=== PATIENT | male | born 1945 | race Caucasian/White ===

== ENCOUNTER 2017-09-05 09:00 | Emergency (ER) | payer MEDICARE ==
[~2017-09-05] VITALS: Ht 177.8 cm; Wt 75.0 kg
[~2017-09-05 09:00] MED LIST: DICL75TA2 PO; GABA300C10 PO; METH750T87 PO; MODA200T27 PO; OXYC-302 PO; [UNRECOGNIZED DRUG - CODE] PO
[2017-09-05] MEDS ORDERED: SODIUM CHLORIDE FLUSH 10ML SYR IVF ONE (11:00)
[2017-09-05] MEDS ORDERED: SODIUM CHLORIDE 0.9% 1,000ML IV ONE (11:00)
[2017-09-05 11:08] LABS: HEMATOCRIT 44.4 % (39.2-51.8); HEMOGLOBIN 15.1 g/dL (13.7-18.0); WHITE BLOOD COUNT 15.6 x10^3/uL (3.4-10)
[2017-09-05 11:20] LABS: ASPARTATE AMINO TRANSFERASE 12 U/L (15-37); BLOOD UREA NITROGEN 19 mg/dL (7-18)
[2017-09-05 11:43] LABS: DIFF TOTAL CELLS COUNTED 100 CELL DIFF
[2017-09-05 11:55] LABS: VERIFY COUNTS? YES
[2017-09-05 13:56] VITALS: BP 136/78
[2017-09-05] MEDS ORDERED: GADOBUTROL 7.5 MMOL/7.5 ML PFS ONE (14:15)
== END 2017-09-05 13:59 | disposition home or self-care (01) ==
LOC: ED 10:26
DX: N34.1 Nonspecific urethritis (principal); D72.829 Elevated white blood cell count, unspecified; M25.559 Pain in unspecified hip; M54.9 Dorsalgia, unspecified; G89.29 Other chronic pain
CPT/HCPCS: 36415; 72158; 74176; 80053; 81003; 85025; 96360; 99285; A9585; J7030

== ENCOUNTER → 2020-01-21 | Outpatient (CLI) | payer MEDICARE ==
[~2020-01-21] MED LIST changes: -DICL75TA2 PO; +DICL75TA3 PO
== END | disposition home or self-care (01) ==
LOC: RAD 08:41
PROVIDERS: ATTEND Internal Medicine Hematology & Oncology
DX: C91.10 Chronic lymphocytic leukemia of B-cell type not having achieved remission (principal)
CPT/HCPCS: 36573; C1751

== ENCOUNTER 2020-02-02 07:44 | Emergency (ER) | payer MEDICARE ==
[~2020-02-02] VITALS: Ht 177.8 cm; Wt 79.8 kg
--- NOTE | 2020-02-02 08:34 | NUR ---
RETAIL ADMINISTRATIVE ASSISTANT: PT AMBUALTORY WITH STEADY GAIT TO ROOM.
--- NOTE | 2020-02-02 08:41 | NUR ---
pt ambulated to room with a steady gait, even and unlabored respirations, NAD, denies additional needs, changed into gown, resting on gurney, given blanket for comfort, call light within reach. WCTM
--- NOTE | 2020-02-02 09:11 | NUR ---
US in room, call light within reach, even and unlabored respirations, denies additional needs, NAD, WCTM.
[2020-02-02 09:24] LABS: MEAN CORPUSCULAR HEMOGLOBIN 31.9 pg (27.5-34.5); MEAN CORPUSCULAR VOLUME 96.9 fL (81-97); MEAN PLATELET VOLUME 7.8 fL (7.4-10.4); PLATELET COUNT 138 x10^3/uL (130-400); RED BLOOD COUNT 3.85 x10^6/uL (4.38-5.82); RED CELL DISTRIBUTION WIDTH 12.4 % (9.4-14.8)
[2020-02-02 09:32] LABS: ANION GAP 8 mmol/L (5-15); CALCIUM 8.6 mg/dL (8.5-10.1); CHLORIDE 109 mmol/L (98-107); CREATININE 1.23 mg/dL (0.7-1.3); INTERNATIONAL NORMALIZED RATIO 1.01 (0.93-1.1); PROTHROMBIN TIME 10.7 Seconds (9.6-11.5)
--- NOTE | 2020-02-02 09:50 | NUR ---
pt resting in gurney, call light within reach, even and unlabored respirations, denies additional needs, NAD. WCTM
[2020-02-02] MEDS ORDERED: DICL75TA3 PO (09:55)
--- NOTE | 2020-02-02 09:55 | NUR ---
Pt provided pillow for comfort. WCTM
[2020-02-02 10:27] LABS: MD YES
[2020-02-02 10:36] LABS: BAND#(MANUAL) 0.38 x10^3/uL; BANDS%(MANUAL) 1 % (0-7); LYMPHS% (MANUAL) 25 % (22-44); MONOS#(MANUAL) 0.38 x10^3/uL (0.3-2.7); MONOS% (MANUAL) 1 % (2-9); REACTIVE LYMPHS % (MANUAL) 50 % (0-0); SEG#(MANUAL) 8.74 x10^3/uL (1.8-6.8); SEGS% (MANUAL) 23 % (42-75)
[2020-02-02 10:37] LABS: <PLATELET ESTIMATE> ADEQUATE
[2020-02-02 10:38] LABS: <PLT MORPHOLOGY> NORMAL PLT MORPH; ANISOCYTOSIS 1+
--- NOTE | 2020-02-02 10:55 | NUR ---
Late Entry: Pt resting in gurney, even and unlabored respirations, NAD, denies additional needs at this time. WCTM
[2020-02-02] MEDS ORDERED: APIXABAN 5 MG TABLET PO ONE (11:00)
[2020-02-02] MEDS ORDERED: APIXABAN 5 MG TABLET ONE (11:15)
[2020-02-02 11:21] VITALS: BP 117/63
== END 2020-02-02 11:24 | disposition home or self-care (01) ==
LOC: ED 08:49
DX: I82.A11 Acute embolism and thrombosis of right axillary vein (principal); G89.11 Acute pain due to trauma
CPT/HCPCS: 36415; 80048; 85025; 85610; 85730; 99285